=== PATIENT | female | born 1960 | race American Indian/Alaskan Native ===

== ENCOUNTER 2019-01-11 21:08 | Emergency (ER) | payer MEDICAID ==
[~2019-01-11] VITALS: Ht 157.5 cm; Wt 118.0 kg
[~2019-01-11 21:08] MED LIST: ALBU18HF2 INH; ASPI-1265 PO; BACL10TA PO; FLO44IN IH; FURO-150 PO; GABA100C PO; HUM10VIA SQ; HYDR-4353 PO; IBUP-1984 PO; LORA10TA65 PO; METF500T PO; MSC15T PO; OXYB5TAB11 PO; PANT40TA4 PO; POTA10TA15 PO; PROP15TA PO; [UNRECOGNIZED DRUG - OTHER] TP
[2019-01-11 21:30] VITALS: BP 135/76
--- NOTE | 2019-01-12 00:20 | NUR ---
Staff reports Pt. LWOBS, call placed to number on file. NUmber is not related to Pt. Dr bacon informed.
== END 2019-01-12 00:20 | disposition left against medical advice (07) ==
LOC: ER 21:09
DX: S89.92XA Unspecified injury of left lower leg, initial encounter (principal); Z53.21 Procedure and treatment not carried out due to patient leaving prior to being seen by health care provider; W18.09XA Striking against other object with subsequent fall, initial encounter; Y93.89 Activity, other specified; Y92.89 Other specified places as the place of occurrence of the external cause; Y99.8 Other external cause status

== ENCOUNTER 2021-06-24 06:13 | Day surgery (SDC) | payer MEDICAID ==
[2021-06-17 16:18] LABS: BASOPHILS # (AUTO) 0.1 X10'3 (0-0.2); BASOPHILS % (AUTO) 0.6 % (0-1); EOSINOPHILS # (AUTO) 0.2 X10'3 (0-0.9); EOSINOPHILS % (AUTO) 2.1 % (0-6); LYMPHOCYTES # (AUTO) 2.2 X10'3 (1.1-4.8); LYMPHOCYTES % (AUTO) 21.3 % (21-51); MEAN CORPUSCULAR HEMOGLOBIN 30.8 PG (27.0-31.0); MEAN CORPUSCULAR HGB CONC 33.4 g/dL (33.0-36.5); MEAN PLATELET VOLUME 8.4 FL (7.4-10.4); MONOCYTES # (AUTO) 0.4 X10'3 (0-0.9); MONOCYTES % (AUTO) 3.7 % (2-12); NEUTROPHILS # (AUTO) 7.5 X10'3 (1.8-7.7); NEUTROPHILS % (AUTO) 72.3 % (42-75); PRE OP HEMATOCRIT 39.7 % (35.0-45.0); PRE OP HEMOGLOBIN 13.3 g/dL (12.0-16.0); PRE OP PLATELET COUNT 227 X10'3 (140-440); RED BLOOD COUNT 4.31 X10'6 (4.20-5.60); RED CELL DISTRIBUTION WIDTH 14.1 % (11.5-14.5)
[2021-06-17 16:43] LABS: ALBUMIN 3.3 G/DL (3.4-5.0); ALBUMIN/GLOBULIN RATIO 0.8 (1.1-1.5); ALKALINE PHOSPHATASE 121 IU/L (46-116); BLOOD UREA NITROGEN 20 MG/DL (7-18); BUN/CREATININE RATIO 17.5 (6.6-38.0); CALCIUM 8.7 MG/DL (8.5-10.1); CHLORIDE 104 MMOL/L (99-107); CREATININE 1.14 MG/DL (0.40-0.90); PRE OP ALT 19 U/L (30-65); PRE OP ANION GAP 9 (8-16); PRE OP AST 14 U/L (10-37); PRE OP BILIRUB, TOTAL 0.2 MG/DL (0.0-1.0); PRE OP SODIUM 138 MMOL/L (135-145); TOTAL CARBON DIOXIDE 24.7 MMOL/L (24-32); TOTAL PROTEIN 7.4 G/DL (6.4-8.2); eGFR 48 ML/MIN
[2021-06-17 16:54] LABS: PRE OP GLUCOSE 203 MG/DL (70-104)
[~2021-06-24] VITALS: Ht 154.9 cm; Wt 104.3 kg
[~2021-06-24 06:13] MED LIST changes: -FURO-150 PO; -HUM10VIA SQ; +HUM7525 SQ; -IBUP-1984 PO; +LIRA0.6P2 SUBCUT; -LORA10TA65 PO; -MSC15T PO; -OXYB5TAB11 PO; +OXYB5TAB16 PO; -PANT40TA4 PO; +PANT40TA54 PO; -POTA10TA15 PO; -PROP15TA PO; -[UNRECOGNIZED DRUG - OTHER] TP; +albuterol 2.5 MG/3 ML nebule NEB PRN; +cefazolin/dext.iso 2gm/100ml IV ONE; +famotidine 20mg tablet PO ONE; +ringers solution, lacted 1,000 ML IV SCH
[2021-06-24] MEDS ORDERED: BUPIVAcaine/PF 2.5mg/ml (0.25%) 10ml vial ONE ×2 (06:39→09:20)
[2021-06-24] MEDS ORDERED: insulin regular, human 10 units/0.1 ml syringe SQ ONE (07:50)
[2021-06-24] MEDS ORDERED: fentaNYL/PF 50MCG/1 ML 2ML syringe ONE (08:45)
[2021-06-24] MEDS ORDERED: midazolam 1 mg/ML 2ml injection ONE (08:48)
[2021-06-24] MEDS ORDERED: propofol inj 20 ML IV ONE (08:48)
[2021-06-24] MEDS ORDERED: LIDOcaine 0.5% (5mg/ml) 50ml vial ONE (08:48)
[2021-06-24 09:17] VITALS: BP 103/61
[2021-06-24] MEDS ORDERED: proCHLORperazine 10 MG/2 ml inj IV PRN (09:20)
[2021-06-24] MEDS ORDERED: hydrALAZINE 20mg/ml inj. IV PRN (09:20)
[2021-06-24] MEDS ORDERED: ondansetron/PF 4mg/2ml inj IV PRN (09:20)
[2021-06-24] MEDS ORDERED: acetaminophen 1,000mg/100ml IV 100 ML IV PRN (09:20)
[2021-06-24] MEDS ORDERED: morphine 2 MG/ML inj. syringe IV PRN (09:20)
[2021-06-24] MEDS ORDERED: labetalol 20mg/4ml (5mg/ml) syringe IV PRN (09:20)
[2021-06-24] MEDS ORDERED: ringers solution, lacted 1,000 ML IV SCH (09:20)
[2021-06-24] MEDS ORDERED: meperidine/PF 25mg/ml syringe IV PRN ×2 (09:20)
[2021-06-24 09:27] VITALS: BP 110/70
[2021-06-24 09:30] VITALS: BP 121/77
[2021-06-24 09:37] VITALS: BP 140/85
--- NOTE | 2021-06-24 09:48 | NUR ---
PT AWAKE ALERT VSS NO PAIN VENUS PO'S MEETS CRITERIA TO GO HOME DC INSTR GIVEN DAUGHTER CALLED. Addendum: 06/24/21 at 0949 by Romana Rizo RN Amended: Links added.
== END 2021-06-24 09:47 | disposition home or self-care (01) ==
LOC: PAS 06:13
PROVIDERS: ATTEND Orthopaedic Surgery Hand Surgery
DX: G56.01 Carpal tunnel syndrome, right upper limb (principal); M67.431 Ganglion, right wrist; G47.33 Obstructive sleep apnea (adult) (pediatric); E11.9 Type 2 diabetes mellitus without complications; K21.9 Gastro-esophageal reflux disease without esophagitis; E66.9 Obesity, unspecified; Z68.42 Body mass index [BMI] 45.0-49.9, adult; Z90.49 Acquired absence of other specified parts of digestive tract; Z98.890 Other specified postprocedural states; Z87.891 Personal history of nicotine dependence; Z79.899 Other long term (current) drug therapy; Z79.82 Long term (current) use of aspirin; Z79.4 Long term (current) use of insulin
CPT/HCPCS: 25111; 36415; 64721; 80053; 82948; 85025; 93005; J1815; J2001; J2250; J2704; J3010; J3490; U0003; U0005; Z7506; Z7512; A4215; J7120

== ENCOUNTER 2021-08-09 09:13 | Day surgery (SDC) | payer MEDICAID ==
[2021-08-05 11:47] LABS: BASOPHILS # (AUTO) 0.1 X10'3 (0-0.2); BASOPHILS % (AUTO) 0.6 % (0-1); EOSINOPHILS # (AUTO) 0.2 X10'3 (0-0.9); EOSINOPHILS % (AUTO) 2.1 % (0-6); LYMPHOCYTES # (AUTO) 2.4 X10'3 (1.1-4.8); LYMPHOCYTES % (AUTO) 26.9 % (21-51); MEAN CORPUSCULAR HEMOGLOBIN 31.6 PG (27.0-31.0); MEAN CORPUSCULAR HGB CONC 35.2 g/dL (33.0-36.5); MEAN CORPUSCULAR VOLUME 89.7 FL (78-98); MEAN PLATELET VOLUME 8.7 FL (7.4-10.4); MONOCYTES # (AUTO) 0.4 X10'3 (0-0.9); MONOCYTES % (AUTO) 4.4 % (2-12); PRE OP HEMATOCRIT 39.5 % (35.0-45.0); PRE OP HEMOGLOBIN 13.9 g/dL (12.0-16.0); PRE OP PLATELET COUNT 225 X10'3 (140-440); RED CELL DISTRIBUTION WIDTH 14.8 % (11.5-14.5)
[2021-08-05 12:02] LABS: ALBUMIN 3.3 G/DL (3.4-5.0); ALBUMIN/GLOBULIN RATIO 0.8 (1.1-1.5); ALKALINE PHOSPHATASE 129 IU/L (46-116); BLOOD UREA NITROGEN 18 MG/DL (7-18); BUN/CREATININE RATIO 18.4 (6.6-38.0); CALCIUM 8.7 MG/DL (8.5-10.1); CHLORIDE 105 MMOL/L (99-107); CREATININE 0.98 MG/DL (0.40-0.90); PRE OP ALT 27 U/L (30-65); PRE OP ANION GAP 7 (8-16); PRE OP AST 19 U/L (10-37); PRE OP BILIRUB, TOTAL 0.3 MG/DL (0.0-1.0); PRE OP GLUCOSE 95 MG/DL (70-104); PRE OP SODIUM 143 MMOL/L (135-145); TOTAL CARBON DIOXIDE 31.3 MMOL/L (24-32); TOTAL PROTEIN 7.7 G/DL (6.4-8.2); eGFR 58 ML/MIN
[2021-08-09] VITALS (10 sets, daily range): BP systolic 116–128; BP diastolic 63–72
[~2021-08-09] VITALS: Ht 152.4 cm; Wt 112.0 kg
[~2021-08-09 09:13] MED LIST changes: +ATOR-2 PO; -BACL10TA PO; +BUPIVAcaine/PF 2.5mg/ml (0.25%) 10ml vial ONE; -GABA100C PO; +GLIP5TAB13 PO; -HUM7525 SQ; +HYDR-3972 PO; -HYDR-4353 PO; +IPRA4AER INH; +MELO-100 PO; +METF-900 PO; -METF500T PO; +NICOTINE PO; +SUL50S EACHEYE; +ceFAZolin 2gm in dextrose, iso 50 ML IV ONE; -cefazolin/dext.iso 2gm/100ml IV ONE
[2021-08-09] MEDS ORDERED: fentaNYL/PF 50MCG/1 ML 2ML syringe ONE (10:58)
[2021-08-09] MEDS ORDERED: midazolam 1 mg/ML 2ml injection ONE (10:58)
[2021-08-09] MEDS ORDERED: propofol inj 20 ML IV ONE (11:13)
--- NOTE | 2021-08-09 11:26 | NUR ---
Received from OR via , accompanied by Anesthesiologist DR FREITAS and report given by Anesthesiolgist. PT PRESENTS WITH 20G RIGHT AC, DRESSSING ON LEFT WRIST DRY AND INTACT, VSS. Addendum: 08/09/21 at 1135 by Nuha Cervantes RN, RN Amended: Links added.
[2021-08-09] MEDS ORDERED: morphine 4 MG/ML inj SYRINge IV PRN (11:30)
[2021-08-09] MEDS ORDERED: ondansetron/PF 4mg/2ml inj IV PRN (11:30)
[2021-08-09] MEDS ORDERED: meperidine/PF 25mg/ml syringe IV PRN ×3 (11:30)
[2021-08-09] MEDS ORDERED: morphine 2 MG/ML inj. syringe IV PRN (11:30)
[2021-08-09] MEDS ORDERED: ringers solution, lacted 1,000 ML IV SCH (11:30)
[2021-08-09] MEDS ORDERED: proCHLORperazine 10 MG/2 ml inj IV PRN (11:30)
--- NOTE | 2021-08-09 12:36 | NUR ---
I HAVE REVIEWED D/C INSTRUCTIONS WITH PATIENT AND THEY HAVE VERBALIZED UNDERSTANDING OF INSTRUCTIONS. PATIENT D/C HOME WITH ALL BELONGINGS AND FAMILY GAVE TRANSPORT Addendum: 08/09/21 at 1247 by Nuha Cervantes RN, RN Amended: Links added.
== END 2021-08-09 12:36 | disposition home or self-care (01) ==
LOC: PAS 09:13
PROVIDERS: ATTEND Orthopaedic Surgery Hand Surgery
DX: G56.02 Carpal tunnel syndrome, left upper limb (principal); J45.909 Unspecified asthma, uncomplicated; K21.9 Gastro-esophageal reflux disease without esophagitis; E11.9 Type 2 diabetes mellitus without complications; I10 Essential (primary) hypertension; G47.30 Sleep apnea, unspecified; E66.9 Obesity, unspecified; Z68.42 Body mass index [BMI] 45.0-49.9, adult; F17.210 Nicotine dependence, cigarettes, uncomplicated; Z79.899 Other long term (current) drug therapy; Z79.84 Long term (current) use of oral hypoglycemic drugs; Z79.82 Long term (current) use of aspirin; Z20.822 Contact with and (suspected) exposure to COVID-19; Z98.890 Other specified postprocedural states
CPT/HCPCS: 29848; 36415; 80053; 82948; 85025; J2250; J2704; J3010; J3490; U0003; U0005; Z7506; Z7512; A4215; A7000; J7120

== ENCOUNTER 2025-09-06 19:24 | Emergency (ER) | payer MEDICAID ==
[~2025-09-06] VITALS: Ht 152.4 cm; Wt 100.0 kg
[~2025-09-06 19:24] MED LIST changes: -BUPIVAcaine/PF 2.5mg/ml (0.25%) 10ml vial ONE; -GLIP5TAB13 PO; +GLIP5TAB23 PO; -OXYB5TAB16 PO; +OXYB5TAB21 PO; -albuterol 2.5 MG/3 ML nebule NEB PRN; -ceFAZolin 2gm in dextrose, iso 50 ML IV ONE; -famotidine 20mg tablet PO ONE; -ringers solution, lacted 1,000 ML IV SCH
[2025-09-06 19:39] VITALS: BP 157/97; PULSE 85; RESP 15; TEMP 97.6; O2SAT 99
--- NOTE | 2025-09-06 21:24 | Physician Documentation ---
History of Present Illness ~ Chief Complaint: Wound Stated Complaint: BACK PAIN Primary Medical Doctor: Kelton De La Cruz- PMD HPI This is a 64-year-old female who presents with an area of pain and swelling to her back that has been progressively worsening over the last approximately two weeks, patient reports there is no redness or discharge from the area and reports no recent injury to the area. Patient reports no fever, chills, or other systemic symptoms. Tetanus within 5 years?: Yes Medication Reconciliation Allergies: Coded Allergies: No Known Allergies (Unverified , 09/06/25) Scheduled Aspirin (Aspirin), 81 MG PO DAILY, (Reported) Atorvastatin Calcium (Atorvastatin Calcium), 1 TAB PO DAILY, (Reported) Fluticasone Propionate (Flovent Hfa), 2 PUFFS IH DAILY, (Reported) Glipizide (Glipizide), 1 TAB PO BID, (Reported) Ipratropium/Albuterol Sulfate (Combivent Respimat Inhal [place]), 1 PUFF INH QID, (Reported) Liraglutide (Victoza 3-[place]), 1.8 MG SUBCUT DAILY, (Reported) Meloxicam* (Meloxicam*), 1 TAB PO DAILY, (Reported) Metformin Hcl* (Metformin ER*), 2 TAB PO BID, (Reported) Oxybutynin Chloride (Oxybutynin Chloride), 1 TABLET PO DAILY, (Reported) Pantoprazole Sodium (Pantoprazole Sodium), 40 MG PO DAILY, (Reported) [Nicotine Chewing Gum], 2 MG PO QID, (Reported) Scheduled PRN Albuterol Sulfate (Ventolin Hfa), 2 PUFFS INH Q4HPRN PRN for SOB or wheezing, (Reported) Hydrocodone Bit/Acetaminophen (Hydrocodon-Acetaminophn 10-325 tablet), 1 TAB PO TID PRN for pain, (Reported) Sulfacetamide Sodium (Sulfacetamide Sodium), 1 DROP EACHEYE QID PRN for dry eyes, (Reported) Past Medical History Past Medical History: Migraine, Peripheral Neuropathy, High Cholesterol, Asthma, GERD, Diabetes Past Surgical History: cholecystectomy Alcohol Use: None Drug Use: none Lives with: Alone Lives In: Home Occupation: disabled Review of Systems ROS As stated above in the HPI, otherwise all systems are reviewed and negative. Physical Exam Vital Signs: Temperature: 97.6, Source: Temporal, Heart Rate: 85, Respiratory Rate: 15, BP: 157/97, Pulse Oximetry: 99, Weight: 100.000 Physical Exam VITALS: Reviewed and as above. GENERAL: Alert, nontoxic appearing, no apparent distress. RESPIRATORY: No increased work of breathing, no respiratory distress, speaking in full clear sentences Progress Results/Orders Results/Orders Vital Signs 09/06/25 19:39 Temp 97.6 Pulse 85 Resp 15 B/P (MAP) 157/97 Pulse Ox 99 Medical Decision Making Additional information obtaine: N/A Findings MSE performed in triage, patient hemodynamically stable on well-appearing, I am unable to visualize the areas patient is wearing a dress and can not expose the area without lifting her dress above her waist, and patient returned to ED lobby by nursing staff to await available ED room Differential Dx:Considerations: Include: Abscess, Cellulitis, Other (Malignancy, dermal cyst) Departure Disposition: 07 LEFT AWOL/ELOPED Impression: Primary Impression: Soft tissue swelling of back Referrals: NO PRIMARY CARE PROVIDER (PCP) Signature Scribe Signature: No scribe Attestation: The note accurately reflects work and decisions made by me.VIVIANE Waiet 09/06/25 21:24 NAEEM MUELLER Sep 06, 2025 21:24 JAMARI RENEE MD Sep 08, 2025 03:01
== END 2025-09-06 21:57 | disposition left against medical advice (07) ==
LOC: ER 19:24
DX: R60.9 Edema, unspecified (principal); E78.00 Pure hypercholesterolemia, unspecified; E11.42 Type 2 diabetes mellitus with diabetic polyneuropathy; G43.909 Migraine, unspecified, not intractable, without status migrainosus; K21.9 Gastro-esophageal reflux disease without esophagitis; Z79.82 Long term (current) use of aspirin; Z79.899 Other long term (current) drug therapy; Z60.2 Problems related to living alone; Z90.49 Acquired absence of other specified parts of digestive tract
CPT/HCPCS: 99282